=== PATIENT | female | born 1940 | race Caucasian/White ===

== ENCOUNTER 2018-04-27 12:44 | Inpatient (IN) | payer MEDICARE, BC ==
[~2018-04-27] VITALS: Ht 147.3 cm; Wt 60.3 kg
[~2018-04-27 12:44] MED LIST: FUROSEMIDE 20 MG TABLET PO PRN; POTASSIUM CHLORIDE 10 MEQ ER TABLET PO PRN
[2018-04-27] MEDS ORDERED: MELATONIN 5 MG TABLET PO PRN (15:00)
[2018-04-27 15:24] VITALS: BP 142/74
[2018-04-27] MEDS: ACETAMINOPHEN 325 MG TABLET PO PRN (15:57)
[2018-04-27] MEDS ORDERED: SIMETHICONE 80 MG CHEWABLE TABLET CHEW PRN (16:00)
[2018-04-27] MEDS ORDERED: FUROSEMIDE 20 MG TABLET PO ONE (16:00)
[2018-04-27 18:38] LABS: GLUCOMETER DEV NAME(LOC) 2WR.1; GLUCOSE,POINT OF CARE 143 MG/DL (70-110)
[2018-04-27] MEDS: POLYETHYLENE GLYCOL 3350 17 GM PACKET PO SCH (19:00)
[2018-04-27] MEDS: OXYGEN THERAPY IH SCH (20:00)
[2018-04-27] MEDS: SENNA 187 MG TABLET PO SCH ×2 (21:00→21:56)
[2018-04-27] MEDS: CALCIUM CIT/VITAMIN D3 200 MG-250 UNITS TABLET PO SCH ×2 (21:00→21:56)
[2018-04-27] MEDS: DOCUSATE SODIUM 100 MG CAPSULE PO SCH ×2 (21:00→21:57)
[2018-04-27 21:30] VITALS: BP 152/82
[2018-04-27] MEDS: PREGABALIN 50 MG CAPSULE PO SCH (21:56)
[2018-04-27] MEDS: PredniSONE 5 MG TABLET PO SCH (21:57)
[2018-04-27] MEDS: ATORVASTATIN CALCIUM 20 MG TABLET PO SCH (21:57)
[2018-04-27] MEDS: CELECOXIB 200 MG CAPSULE PO SCH (21:57)
[2018-04-27] MEDS: AmLODIPine BESYLATE 5 MG TABLET PO SCH (21:57)
[2018-04-27 22:04] LABS: GLUCOMETER DEV NAME(LOC) 2WR.2; GLUCOSE,POINT OF CARE 128 MG/DL (70-110)
[2018-04-28 02:00] VITALS: BP 144/81
[2018-04-28] MEDS: LEVOTHYROXINE SODIUM 75 MCG TABLET PO SCH (05:35)
[2018-04-28 06:48] LABS: HEMATOCRIT 31.5 % (36-46); HEMOGLOBIN 10.4 g/dL (12.0-16.0); MEAN CORPUSCULAR HEMOGLOBIN 29.8 pg (26.0-34.0); MEAN CORPUSCULAR HGB CONC 32.9 G/dL (31.0-37.0); MEAN CORPUSCULAR VOLUME 91 fL (80-100); PLATELET COUNT (AUTO) 262 K/uL (150-450); RED BLOOD CELL COUNT(AUTO) 3.49 MIL/uL (4.00-5.20); RED CELL DISTRIBUTION WIDTH 16.7 % (11.5-14.5)
[2018-04-28 06:54] LABS: HEMOGLOBIN A1C 6.4 % (4.5-6.2)
[2018-04-28 07:00] LABS: ALANINE AMINOTRANSFERASE 17 U/L (12-78); ALBUMIN 2.1 g/dL (3.4-5.0); ALKALINE PHOSPHATASE 77 U/L (46-116); ANION GAP 9 mmol/L (8-16); ASPARTATE AMINOTRANSFERASE 20 U/L (15-37); BILIRUBIN,TOTAL 0.5 mg/dL (0.1-1.0); CALCIUM, TOTAL 8.2 mg/dL (8.8-10.5); CARBON DIOXIDE 26 mmol/L (22-29); CHLORIDE 102 mmol/L (98-107); CREATININE 0.71 mg/dL (0.60-1.30); GLUCOSE,RANDOM 116 mg/dL (70-110); POTASSIUM 4.4 mmol/L (3.5-5.1); SODIUM SERUM 137 mmol/L (136-145); TOTAL PROTEIN, SERUM 5.6 g/dL (6.4-8.2); UREA NITROGEN, BLOOD 31 mg/dL (7-18)
[2018-04-28 07:02] LABS: GLOMERULAR FILTR. RATE CALC > 60 mL/min (>60)
[2018-04-28 07:28] VITALS: BP 153/95
[2018-04-28] MEDS: OXYGEN THERAPY IH SCH ×3 (08:00→20:59)
[2018-04-28] MEDS: POLYETHYLENE GLYCOL 3350 17 GM PACKET PO SCH (08:46)
[2018-04-28] MEDS: PREGABALIN 25 MG CAPSULE PO SCH (08:46)
[2018-04-28] MEDS: OMEPRAZOLE 20 MG CAPSULE PO SCH (08:46)
[2018-04-28] MEDS: PredniSONE 10 MG TABLET PO SCH (08:47)
[2018-04-28] MEDS: DOCUSATE SODIUM 100 MG CAPSULE PO SCH ×2 (08:47→21:09)
[2018-04-28] MEDS: ALLOPURINOL 300 MG TABLET PO SCH (08:47)
[2018-04-28] MEDS: CELECOXIB 200 MG CAPSULE PO SCH ×2 (08:47→21:09)
[2018-04-28] MEDS: CALCIUM CIT/VITAMIN D3 200 MG-250 UNITS TABLET PO SCH ×2 (08:47→21:10)
[2018-04-28] MEDS ORDERED: LISINOPRIL 5 MG TABLET PO SCH ×3 (09:00→21:00)
[2018-04-28] MEDS ORDERED: POTASSIUM CHLORIDE 10 MEQ ER TABLET PO SCH (09:00)
[2018-04-28 09:32] LABS: BAND NEUTROPHILS % (MANUAL) 2 % (0-5); LYMPHOCYTES % (MANUAL) 15 % (22-44); METAMYELOCYTES % 4 % (0-0); MONOCYTES % (MANUAL) 13 % (2-9); MYELOCYTES % 3 % (0-0); SEGMENTED NEUTROPHILS % 63 % (40-70)
[2018-04-28] MEDS ORDERED: POLYETHYLENE GLYCOL 3350 17 GM PACKET PO PRN (09:45)
[2018-04-28 12:58] LABS: GLUCOMETER DEV NAME(LOC) 2WR.2; GLUCOSE,POINT OF CARE 90 MG/DL (70-110)
[2018-04-28] MEDS: ACETAMINOPHEN 325 MG TABLET PO PRN (13:04)
[2018-04-28 13:37] VITALS: BP 152/99
[2018-04-28 15:45] VITALS: BP 156/104
[2018-04-28 17:29] LABS: GLUCOMETER DEV NAME(LOC) 2WR.2; GLUCOSE,POINT OF CARE 162 MG/DL (70-110)
[2018-04-28 17:30] VITALS: BP 143/81
[2018-04-28] MEDS: METOPROLOL SUCCINATE 50 MG ER TABLET PO SCH (18:04)
[2018-04-28 18:54] LABS: GLUCOMETER DEV NAME(LOC) 2WR.1; GLUCOSE,POINT OF CARE 119 MG/DL (70-110)
[2018-04-28] MEDS: SENNA 187 MG TABLET PO SCH (21:00)
[2018-04-28 21:04] VITALS: BP 146/85
[2018-04-28] MEDS: AmLODIPine BESYLATE 5 MG TABLET PO SCH (21:09)
[2018-04-28] MEDS: ATORVASTATIN CALCIUM 20 MG TABLET PO SCH (21:10)
[2018-04-28] MEDS: PREGABALIN 50 MG CAPSULE PO SCH (21:12)
[2018-04-28] MEDS: PredniSONE 5 MG TABLET PO SCH (21:12)
[2018-04-28 22:13] LABS: GLUCOMETER DEV NAME(LOC) 2WR.2; GLUCOSE,POINT OF CARE 105 MG/DL (70-110)
[2018-04-29] VITALS: BP 151/84
[2018-04-29] MEDS: LEVOTHYROXINE SODIUM 75 MCG TABLET PO SCH (07:04)
[2018-04-29 07:19] LABS: GLUCOMETER DEV NAME(LOC) 2WR.2; GLUCOSE,POINT OF CARE 98 MG/DL (70-110)
[2018-04-29 08:00] VITALS: BP 154/76
[2018-04-29] MEDS: OXYGEN THERAPY IH SCH ×2 (08:00→20:00)
[2018-04-29] MEDS ORDERED: DEXTROSE 50%-WATER 25 GM/50 ML SYRINGE IVP PRN (09:45)
[2018-04-29] MEDS ORDERED: INSULIN LISPRO 100 UNITS/ML SQ PRN (09:45)
[2018-04-29] MEDS: PREGABALIN 25 MG CAPSULE PO SCH (09:53)
[2018-04-29] MEDS: ALLOPURINOL 300 MG TABLET PO SCH (09:55)
[2018-04-29] MEDS: FUROSEMIDE 20 MG TABLET PO SCH (09:55)
[2018-04-29] MEDS: METOPROLOL SUCCINATE 50 MG ER TABLET PO SCH (09:55)
[2018-04-29] MEDS: CALCIUM CIT/VITAMIN D3 200 MG-250 UNITS TABLET PO SCH ×2 (09:55→20:09)
[2018-04-29] MEDS: CELECOXIB 200 MG CAPSULE PO SCH ×2 (09:55→20:11)
[2018-04-29] MEDS: POTASSIUM CHLORIDE 10 MEQ ER TABLET PO SCH (09:56)
[2018-04-29] MEDS: DOCUSATE SODIUM 100 MG CAPSULE PO SCH ×2 (09:56→20:13)
[2018-04-29] MEDS: OMEPRAZOLE 20 MG CAPSULE PO SCH (09:58)
[2018-04-29] MEDS: PredniSONE 10 MG TABLET PO SCH (10:00)
[2018-04-29 13:19] LABS: GLUCOMETER DEV NAME(LOC) 2WR.1; GLUCOSE,POINT OF CARE 106 MG/DL (70-110)
[2018-04-29] MEDS: COLD CREAM, SKIN EMOLLIENT 340 GM JAR TP SCH ×2 (14:33→20:15)
[2018-04-29 17:53] LABS: GLUCOMETER DEV NAME(LOC) 2WR.1; GLUCOSE,POINT OF CARE 120 MG/DL (70-110)
[2018-04-29 18:03] VITALS: BP 133/87
[2018-04-29] MEDS: LISINOPRIL 20 MG TABLET PO SCH (20:09)
[2018-04-29] MEDS: PredniSONE 5 MG TABLET PO SCH (20:09)
[2018-04-29] MEDS: ACETAMINOPHEN 325 MG TABLET PO PRN (20:10)
[2018-04-29] MEDS: AmLODIPine BESYLATE 5 MG TABLET PO SCH (20:10)
[2018-04-29] MEDS: ATORVASTATIN CALCIUM 20 MG TABLET PO SCH (20:11)
[2018-04-29] MEDS: PREGABALIN 50 MG CAPSULE PO SCH (20:11)
[2018-04-29] MEDS: SENNA 187 MG TABLET PO SCH (20:13)
[2018-04-29] MEDS ORDERED: LISINOPRIL 5 MG TABLET PO SCH (21:00)
[2018-04-30] VITALS: BP 143/72
[2018-04-30 06:39] LABS: GLUCOMETER DEV NAME(LOC) 2WR.2; GLUCOSE,POINT OF CARE 104 MG/DL (70-110)
[2018-04-30] MEDS: LEVOTHYROXINE SODIUM 75 MCG TABLET PO SCH (07:03)
[2018-04-30] MEDS: OXYGEN THERAPY IH SCH ×2 (08:00→20:00)
[2018-04-30 08:13] VITALS: BP 150/78
[2018-04-30] MEDS: CELECOXIB 200 MG CAPSULE PO SCH ×2 (08:44→20:01)
[2018-04-30] MEDS: OMEPRAZOLE 20 MG CAPSULE PO SCH (08:44)
[2018-04-30] MEDS: METOPROLOL SUCCINATE 50 MG ER TABLET PO SCH (08:44)
[2018-04-30] MEDS: DOCUSATE SODIUM 100 MG CAPSULE PO SCH ×2 (08:44→20:00)
[2018-04-30] MEDS: PredniSONE 10 MG TABLET PO SCH (08:45)
[2018-04-30] MEDS: PREGABALIN 50 MG CAPSULE PO SCH ×2 (08:45→22:01)
[2018-04-30] MEDS: ALLOPURINOL 300 MG TABLET PO SCH (08:45)
[2018-04-30] MEDS: COLD CREAM, SKIN EMOLLIENT 340 GM JAR TP SCH ×2 (08:46→20:01)
[2018-04-30] MEDS: CALCIUM CIT/VITAMIN D3 200 MG-250 UNITS TABLET PO SCH ×2 (08:48→20:00)
[2018-04-30 09:10] LABS: ABG A-A DIFF O2 34.3 mmHg (10-20.0); ABG BASE EXCESS 4.2 mmol/L (-2.0-3.0); ABG CARBOXYHEMOGLOBIN 0.7 % (0.0-1.5); ABG HCO3 28.3 mmol/L (22.0-26.0); ABG METHEMOGLOBIN 0.3 % (0.0-1.5); ABG OXYGEN CONTENT 18.2 mL/dL (15.0-23.0); ABG OXYGEN SATURATION 95.2 % (95.0-98.0); ABG OXYHEMOGLOBIN 94.2 % (94.0-100.0); ABG PCO2 35 mmHg (35-45); ABG PH 7.509 (7.35-7.450); ABG TOTAL HEMOGLOBIN 13.7 G/dL (12.0-18.0); PO2, ARTERIAL BG 73.5 mmHg (75.0-83.0); SOURCE, BLOOD GAS ARTERIAL; TEMPERATURE, FAHRENHEIT, BG 98.6 FAHREN (96.0-98.6)
[2018-04-30 09:11] LABS: O2 DEVICE,BLOOD GAS ROOM AIR (ROOM AIR); SITE, BLOOD GAS RT RADIAL
[2018-04-30] MEDS: TraMADol HCL 50 MG TABLET PO PRN (10:34)
[2018-04-30 12:30] VITALS: BP 137/94
[2018-04-30 16:06] VITALS: BP 145/66
[2018-04-30 20:00] VITALS: BP 154/84
[2018-04-30] MEDS: PredniSONE 5 MG TABLET PO SCH (20:00)
[2018-04-30] MEDS: AmLODIPine BESYLATE 5 MG TABLET PO SCH (20:00)
[2018-04-30] MEDS: ATORVASTATIN CALCIUM 20 MG TABLET PO SCH (20:00)
[2018-04-30] MEDS: LISINOPRIL 20 MG TABLET PO SCH (20:00)
[2018-04-30] MEDS: SENNA 187 MG TABLET PO SCH (20:00)
[2018-05-01 03:00] VITALS: BP 144/74
[2018-05-01] MEDS: LEVOTHYROXINE SODIUM 75 MCG TABLET PO SCH (05:50)
[2018-05-01 06:39] LABS: GLUCOMETER DEV NAME(LOC) 2WR.2; GLUCOSE,POINT OF CARE 105 MG/DL (70-110)
[2018-05-01 08:00] VITALS: BP 148/84
[2018-05-01] MEDS: OXYGEN THERAPY IH SCH ×2 (08:00→20:00)
[2018-05-01] MEDS: PredniSONE 5 MG TABLET PO SCH ×2 (08:38→20:04)
[2018-05-01] MEDS: DOCUSATE SODIUM 100 MG CAPSULE PO SCH ×3 (08:39→20:10)
[2018-05-01] MEDS: METOPROLOL SUCCINATE 50 MG ER TABLET PO SCH (08:39)
[2018-05-01] MEDS: ALLOPURINOL 300 MG TABLET PO SCH (08:39)
[2018-05-01] MEDS: CALCIUM CIT/VITAMIN D3 200 MG-250 UNITS TABLET PO SCH ×2 (08:39→20:03)
[2018-05-01] MEDS: OMEPRAZOLE 20 MG CAPSULE PO SCH (08:39)
[2018-05-01] MEDS: PREGABALIN 50 MG CAPSULE PO SCH ×2 (08:39→20:03)
[2018-05-01] MEDS: CELECOXIB 200 MG CAPSULE PO SCH ×2 (08:39→20:03)
[2018-05-01] MEDS: FUROSEMIDE 20 MG TABLET PO SCH (08:40)
[2018-05-01] MEDS: COLD CREAM, SKIN EMOLLIENT 340 GM JAR TP SCH ×2 (08:40→20:05)
[2018-05-01] MEDS: POTASSIUM CHLORIDE 10 MEQ ER TABLET PO SCH (08:40)
[2018-05-01] MEDS ORDERED: PredniSONE 10 MG TABLET PO SCH (09:00)
[2018-05-01] MEDS: TraMADol HCL 50 MG TABLET PO PRN (12:39)
[2018-05-01 16:00] VITALS: BP 133/74
[2018-05-01 20:00] VITALS: BP 128/78
[2018-05-01] MEDS: SENNA 187 MG TABLET PO SCH (20:03)
[2018-05-01] MEDS: LISINOPRIL 20 MG TABLET PO SCH (20:04)
[2018-05-01] MEDS: AmLODIPine BESYLATE 5 MG TABLET PO SCH (20:04)
[2018-05-01] MEDS: ATORVASTATIN CALCIUM 20 MG TABLET PO SCH (20:04)
[2018-05-02 03:36] VITALS: BP 131/69
[2018-05-02] MEDS: LEVOTHYROXINE SODIUM 75 MCG TABLET PO SCH (06:10)
[2018-05-02 06:29] LABS: GLUCOMETER DEV NAME(LOC) 2WR.1; GLUCOSE,POINT OF CARE 119 MG/DL (70-110)
[2018-05-02] MEDS: OXYGEN THERAPY IH SCH ×2 (08:00→20:00)
[2018-05-02 09:00] VITALS: BP 137/71
[2018-05-02] MEDS: DOCUSATE SODIUM 100 MG CAPSULE PO SCH ×3 (09:00→20:28)
[2018-05-02] MEDS: CELECOXIB 200 MG CAPSULE PO SCH ×2 (09:03→20:29)
[2018-05-02] MEDS: ALLOPURINOL 300 MG TABLET PO SCH (09:03)
[2018-05-02] MEDS: METOPROLOL SUCCINATE 50 MG ER TABLET PO SCH (09:04)
[2018-05-02] MEDS: CALCIUM CIT/VITAMIN D3 200 MG-250 UNITS TABLET PO SCH ×2 (09:04→20:28)
[2018-05-02] MEDS: PredniSONE 5 MG TABLET PO SCH ×2 (09:05→20:29)
[2018-05-02] MEDS: OMEPRAZOLE 20 MG CAPSULE PO SCH (09:05)
[2018-05-02] MEDS: COLD CREAM, SKIN EMOLLIENT 340 GM JAR TP SCH ×2 (09:07→20:29)
[2018-05-02] MEDS: PREGABALIN 50 MG CAPSULE PO SCH ×2 (09:07→20:28)
[2018-05-02 15:03] VITALS: BP 118/52
[2018-05-02] MEDS: TraMADol HCL 50 MG TABLET PO PRN (15:05)
[2018-05-02 20:00] VITALS: BP 132/82
[2018-05-02] MEDS: SENNA 187 MG TABLET PO SCH (20:28)
[2018-05-02] MEDS: ATORVASTATIN CALCIUM 20 MG TABLET PO SCH (20:29)
[2018-05-02] MEDS: AmLODIPine BESYLATE 5 MG TABLET PO SCH (20:29)
[2018-05-02] MEDS: LISINOPRIL 20 MG TABLET PO SCH (20:29)
[2018-05-03 03:57] VITALS: BP 136/74
[2018-05-03] MEDS: LEVOTHYROXINE SODIUM 75 MCG TABLET PO SCH (06:16)
[2018-05-03 07:46] VITALS: BP 148/78
[2018-05-03] MEDS: OXYGEN THERAPY IH SCH ×2 (08:00→20:00)
[2018-05-03] MEDS: POTASSIUM CHLORIDE 10 MEQ ER TABLET PO SCH (08:17)
[2018-05-03] MEDS: PREGABALIN 50 MG CAPSULE PO SCH ×2 (08:17→20:33)
[2018-05-03] MEDS: CELECOXIB 200 MG CAPSULE PO SCH ×2 (08:17→20:33)
[2018-05-03] MEDS: OMEPRAZOLE 20 MG CAPSULE PO SCH (08:18)
[2018-05-03] MEDS: PredniSONE 5 MG TABLET PO SCH ×2 (08:18→20:33)
[2018-05-03] MEDS: CALCIUM CIT/VITAMIN D3 200 MG-250 UNITS TABLET PO SCH ×2 (08:20→20:33)
[2018-05-03] MEDS: ALLOPURINOL 300 MG TABLET PO SCH (08:20)
[2018-05-03] MEDS: METOPROLOL SUCCINATE 50 MG ER TABLET PO SCH (08:20)
[2018-05-03] MEDS: COLD CREAM, SKIN EMOLLIENT 340 GM JAR TP SCH ×2 (08:21→20:34)
[2018-05-03] MEDS: DOCUSATE SODIUM 100 MG CAPSULE PO SCH ×2 (08:21→20:33)
[2018-05-03] MEDS: FUROSEMIDE 20 MG TABLET PO SCH (08:21)
[2018-05-03] MEDS: ACETAMINOPHEN 325 MG TABLET PO PRN (13:20)
[2018-05-03] MEDS ORDERED: *NON-FORMULARY MED [ENTER DRUG, DOSE, FREQ IN COMMENTS] CLINICAL ONE (14:45)
[2018-05-03 16:09] VITALS: BP 115/62
[2018-05-03 20:25] VITALS: BP 118/57
[2018-05-03] MEDS: LISINOPRIL 20 MG TABLET PO SCH (20:33)
[2018-05-03] MEDS: ATORVASTATIN CALCIUM 20 MG TABLET PO SCH (20:33)
[2018-05-03] MEDS: AmLODIPine BESYLATE 5 MG TABLET PO SCH (20:33)
[2018-05-03] MEDS: SENNA 187 MG TABLET PO SCH (20:34)
[2018-05-04 01:56] VITALS: BP 136/69
[2018-05-04] MEDS: LEVOTHYROXINE SODIUM 75 MCG TABLET PO SCH (05:57)
[2018-05-04 07:21] VITALS: BP 140/72
[2018-05-04] MEDS: DOCUSATE SODIUM 100 MG CAPSULE PO SCH ×2 (08:38→20:43)
[2018-05-04] MEDS: OXYGEN THERAPY IH SCH ×2 (08:38→20:00)
[2018-05-04] MEDS: ALLOPURINOL 300 MG TABLET PO SCH (08:38)
[2018-05-04] MEDS: CALCIUM CIT/VITAMIN D3 200 MG-250 UNITS TABLET PO SCH ×2 (08:38→20:44)
[2018-05-04] MEDS: METOPROLOL SUCCINATE 50 MG ER TABLET PO SCH (08:39)
[2018-05-04] MEDS: PREGABALIN 50 MG CAPSULE PO SCH ×2 (08:39→20:44)
[2018-05-04] MEDS: CELECOXIB 200 MG CAPSULE PO SCH ×2 (08:39→20:44)
[2018-05-04] MEDS: PredniSONE 5 MG TABLET PO SCH ×2 (08:39→20:44)
[2018-05-04] MEDS: COLD CREAM, SKIN EMOLLIENT 340 GM JAR TP SCH ×2 (08:40→20:44)
[2018-05-04] MEDS: OMEPRAZOLE 20 MG CAPSULE PO SCH (08:42)
[2018-05-04 09:07] VITALS: BP 119/68
[2018-05-04 15:02] VITALS: BP 143/114
[2018-05-04] MEDS: ACETAMINOPHEN 325 MG TABLET PO PRN (15:06)
[2018-05-04 20:39] VITALS: BP 154/85
[2018-05-04] MEDS: LISINOPRIL 20 MG TABLET PO SCH (20:43)
[2018-05-04] MEDS: AmLODIPine BESYLATE 5 MG TABLET PO SCH (20:43)
[2018-05-04] MEDS: SENNA 187 MG TABLET PO SCH (20:44)
[2018-05-04] MEDS: ATORVASTATIN CALCIUM 20 MG TABLET PO SCH (20:44)
[2018-05-05 02:30] VITALS: BP 148/77
[2018-05-05] MEDS: LEVOTHYROXINE SODIUM 75 MCG TABLET PO SCH (06:05)
[2018-05-05 07:20] VITALS: BP 148/80
[2018-05-05] MEDS: OXYGEN THERAPY IH SCH ×2 (08:00→20:00)
[2018-05-05] MEDS: POTASSIUM CHLORIDE 10 MEQ ER TABLET PO SCH (09:16)
[2018-05-05] MEDS: CELECOXIB 200 MG CAPSULE PO SCH ×2 (09:16→20:18)
[2018-05-05] MEDS: PredniSONE 5 MG TABLET PO SCH ×2 (09:18→20:19)
[2018-05-05] MEDS: CALCIUM CIT/VITAMIN D3 200 MG-250 UNITS TABLET PO SCH ×2 (09:18→20:18)
[2018-05-05] MEDS: PREGABALIN 50 MG CAPSULE PO SCH ×2 (09:18→20:19)
[2018-05-05] MEDS: METOPROLOL SUCCINATE 50 MG ER TABLET PO SCH (09:18)
[2018-05-05] MEDS: DOCUSATE SODIUM 100 MG CAPSULE PO SCH ×2 (09:19→20:18)
[2018-05-05] MEDS: OMEPRAZOLE 20 MG CAPSULE PO SCH (09:19)
[2018-05-05] MEDS: ALLOPURINOL 300 MG TABLET PO SCH (09:19)
[2018-05-05] MEDS: COLD CREAM, SKIN EMOLLIENT 340 GM JAR TP SCH ×2 (09:20→20:22)
[2018-05-05] MEDS ORDERED: [UNRECOGNIZED DRUG - OTHER] SQ SCH (12:34)
[2018-05-05] MEDS: FUROSEMIDE 20 MG TABLET PO SCH (13:00)
[2018-05-05] MEDS: ACETAMINOPHEN 325 MG TABLET PO PRN (13:01)
[2018-05-05] MEDS: HUMIRA 40 MG/0.4 ML SQ SCH (14:17)
[2018-05-05 15:39] VITALS: BP 135/77
[2018-05-05 20:15] VITALS: BP 124/74
[2018-05-05] MEDS: ATORVASTATIN CALCIUM 20 MG TABLET PO SCH (20:19)
[2018-05-05] MEDS: LISINOPRIL 20 MG TABLET PO SCH (20:19)
[2018-05-05] MEDS: SENNA 187 MG TABLET PO SCH (20:19)
[2018-05-05] MEDS: AmLODIPine BESYLATE 5 MG TABLET PO SCH (20:19)
[2018-05-06 03:00] VITALS: BP 146/75
[2018-05-06] MEDS: LEVOTHYROXINE SODIUM 75 MCG TABLET PO SCH (06:26)
[2018-05-06 07:10] VITALS: BP 126/76
[2018-05-06] MEDS: OXYGEN THERAPY IH SCH ×3 (08:00→20:53)
[2018-05-06] MEDS: DOCUSATE SODIUM 100 MG CAPSULE PO SCH ×3 (08:39→20:56)
[2018-05-06] MEDS: CALCIUM CIT/VITAMIN D3 200 MG-250 UNITS TABLET PO SCH ×2 (08:40→20:56)
[2018-05-06] MEDS: METOPROLOL SUCCINATE 50 MG ER TABLET PO SCH (08:40)
[2018-05-06] MEDS: ALLOPURINOL 300 MG TABLET PO SCH (08:40)
[2018-05-06] MEDS: CELECOXIB 200 MG CAPSULE PO SCH ×2 (08:40→20:55)
[2018-05-06] MEDS: OMEPRAZOLE 20 MG CAPSULE PO SCH (08:40)
[2018-05-06] MEDS: PREGABALIN 50 MG CAPSULE PO SCH ×2 (08:40→20:56)
[2018-05-06] MEDS: PredniSONE 5 MG TABLET PO SCH ×2 (08:40→20:56)
[2018-05-06] MEDS: COLD CREAM, SKIN EMOLLIENT 340 GM JAR TP SCH ×2 (08:40→20:57)
[2018-05-06] MEDS: ACETAMINOPHEN 325 MG TABLET PO PRN ×2 (10:34→14:12)
[2018-05-06 15:05] VITALS: BP 124/71
[2018-05-06 20:50] VITALS: BP 135/57
[2018-05-06] MEDS: SENNA 187 MG TABLET PO SCH ×2 (20:55→21:00)
[2018-05-06] MEDS: AmLODIPine BESYLATE 5 MG TABLET PO SCH (20:56)
[2018-05-06] MEDS: ATORVASTATIN CALCIUM 20 MG TABLET PO SCH (20:56)
[2018-05-06] MEDS: LISINOPRIL 20 MG TABLET PO SCH (20:56)
[2018-05-07 03:25] VITALS: BP 142/68
[2018-05-07] MEDS: ACETAMINOPHEN 325 MG TABLET PO PRN ×3 (04:13→17:04)
[2018-05-07] MEDS: LEVOTHYROXINE SODIUM 75 MCG TABLET PO SCH (05:58)
[2018-05-07] MEDS: OXYGEN THERAPY IH SCH ×2 (08:00→20:00)
[2018-05-07] MEDS: CALCIUM CIT/VITAMIN D3 200 MG-250 UNITS TABLET PO SCH ×2 (08:07→20:30)
[2018-05-07] MEDS: DOCUSATE SODIUM 100 MG CAPSULE PO SCH ×2 (08:08→20:30)
[2018-05-07] MEDS: POTASSIUM CHLORIDE 10 MEQ ER TABLET PO SCH (08:09)
[2018-05-07] MEDS: METOPROLOL SUCCINATE 50 MG ER TABLET PO SCH (08:10)
[2018-05-07] MEDS: FUROSEMIDE 20 MG TABLET PO SCH (08:10)
[2018-05-07] MEDS: PREGABALIN 50 MG CAPSULE PO SCH ×2 (08:11→20:31)
[2018-05-07] MEDS: ALLOPURINOL 300 MG TABLET PO SCH (08:11)
[2018-05-07] MEDS: CELECOXIB 200 MG CAPSULE PO SCH ×2 (08:12→20:30)
[2018-05-07] MEDS: OMEPRAZOLE 20 MG CAPSULE PO SCH (08:13)
[2018-05-07] MEDS: PredniSONE 5 MG TABLET PO SCH ×2 (08:14→20:31)
[2018-05-07 08:15] VITALS: BP 134/67
[2018-05-07] MEDS: COLD CREAM, SKIN EMOLLIENT 340 GM JAR TP SCH ×2 (08:18→20:30)
[2018-05-07 15:25] VITALS: BP 110/52
[2018-05-07 20:26] VITALS: BP 118/56
[2018-05-07] MEDS: LISINOPRIL 20 MG TABLET PO SCH (20:30)
[2018-05-07] MEDS: ATORVASTATIN CALCIUM 20 MG TABLET PO SCH (20:30)
[2018-05-07] MEDS: AmLODIPine BESYLATE 5 MG TABLET PO SCH (20:31)
[2018-05-07] MEDS: SENNA 187 MG TABLET PO SCH (20:31)
[2018-05-08 01:41] VITALS: BP 139/66
[2018-05-08] MEDS: ACETAMINOPHEN 325 MG TABLET PO PRN ×3 (04:06→17:40)
[2018-05-08] MEDS: LEVOTHYROXINE SODIUM 75 MCG TABLET PO SCH (06:26)
[2018-05-08] MEDS: OXYGEN THERAPY IH SCH ×3 (08:00→21:27)
[2018-05-08 08:55] VITALS: BP 135/64
[2018-05-08] MEDS: PREGABALIN 50 MG CAPSULE PO SCH ×2 (09:20→21:39)
[2018-05-08] MEDS: OMEPRAZOLE 20 MG CAPSULE PO SCH (09:20)
[2018-05-08] MEDS: ALLOPURINOL 300 MG TABLET PO SCH (09:20)
[2018-05-08] MEDS: DOCUSATE SODIUM 100 MG CAPSULE PO SCH ×2 (09:20→21:39)
[2018-05-08] MEDS: METOPROLOL SUCCINATE 50 MG ER TABLET PO SCH (09:20)
[2018-05-08] MEDS: CALCIUM CIT/VITAMIN D3 200 MG-250 UNITS TABLET PO SCH ×2 (09:20→21:39)
[2018-05-08] MEDS: CELECOXIB 200 MG CAPSULE PO SCH ×2 (09:21→21:39)
[2018-05-08] MEDS: PredniSONE 5 MG TABLET PO SCH ×2 (09:21→21:38)
[2018-05-08] MEDS: COLD CREAM, SKIN EMOLLIENT 340 GM JAR TP SCH ×2 (09:29→21:40)
[2018-05-08 15:05] VITALS: BP 136/69
[2018-05-08] MEDS: SENNA 187 MG TABLET PO SCH ×2 (21:00→21:39)
[2018-05-08 21:35] VITALS: BP 128/57
[2018-05-08] MEDS: LISINOPRIL 20 MG TABLET PO SCH (21:39)
[2018-05-08] MEDS: ATORVASTATIN CALCIUM 20 MG TABLET PO SCH (21:39)
[2018-05-08] MEDS: AmLODIPine BESYLATE 5 MG TABLET PO SCH (21:39)
[2018-05-09 00:30] VITALS: BP 126/56
[2018-05-09] MEDS: LEVOTHYROXINE SODIUM 75 MCG TABLET PO SCH (06:29)
[2018-05-09 07:18] VITALS: BP 146/74
[2018-05-09] MEDS: OXYGEN THERAPY IH SCH ×2 (08:00→20:00)
[2018-05-09] MEDS: CALCIUM CIT/VITAMIN D3 200 MG-250 UNITS TABLET PO SCH ×2 (08:51→21:25)
[2018-05-09] MEDS: FUROSEMIDE 20 MG TABLET PO SCH (08:51)
[2018-05-09] MEDS: CELECOXIB 200 MG CAPSULE PO SCH ×2 (08:51→21:25)
[2018-05-09] MEDS: METOPROLOL SUCCINATE 50 MG ER TABLET PO SCH (08:51)
[2018-05-09] MEDS: OMEPRAZOLE 20 MG CAPSULE PO SCH (08:52)
[2018-05-09] MEDS: DOCUSATE SODIUM 100 MG CAPSULE PO SCH ×2 (08:52→21:25)
[2018-05-09] MEDS: PREGABALIN 50 MG CAPSULE PO SCH ×2 (08:52→21:25)
[2018-05-09] MEDS: POTASSIUM CHLORIDE 10 MEQ ER TABLET PO SCH (08:52)
[2018-05-09] MEDS: ALLOPURINOL 300 MG TABLET PO SCH (08:52)
[2018-05-09] MEDS: PredniSONE 5 MG TABLET PO SCH ×2 (08:52→21:26)
[2018-05-09] MEDS: COLD CREAM, SKIN EMOLLIENT 340 GM JAR TP SCH ×2 (08:59→21:26)
[2018-05-09 09:22] VITALS: BP 137/74
[2018-05-09] MEDS: ACETAMINOPHEN 325 MG TABLET PO PRN ×2 (11:34→15:30)
[2018-05-09 15:30] VITALS: BP 122/70
[2018-05-09] MEDS: SENNA 187 MG TABLET PO SCH (21:00)
[2018-05-09 21:20] VITALS: BP 146/86
[2018-05-09] MEDS: LISINOPRIL 20 MG TABLET PO SCH (21:25)
[2018-05-09] MEDS: AmLODIPine BESYLATE 5 MG TABLET PO SCH (21:25)
[2018-05-09] MEDS: ATORVASTATIN CALCIUM 20 MG TABLET PO SCH (21:26)
[2018-05-10] VITALS: BP 128/67
[2018-05-10] MEDS: LEVOTHYROXINE SODIUM 75 MCG TABLET PO SCH (06:21)
[2018-05-10] MEDS: OXYGEN THERAPY IH SCH ×2 (08:00→20:00)
[2018-05-10 08:10] VITALS: BP 147/83
[2018-05-10] MEDS: METOPROLOL SUCCINATE 50 MG ER TABLET PO SCH (09:13)
[2018-05-10] MEDS: CELECOXIB 200 MG CAPSULE PO SCH ×2 (09:13→20:33)
[2018-05-10] MEDS: PredniSONE 5 MG TABLET PO SCH ×2 (09:13→20:34)
[2018-05-10] MEDS: OMEPRAZOLE 20 MG CAPSULE PO SCH (09:13)
[2018-05-10] MEDS: ALLOPURINOL 300 MG TABLET PO SCH (09:13)
[2018-05-10] MEDS: CALCIUM CIT/VITAMIN D3 200 MG-250 UNITS TABLET PO SCH ×2 (09:14→20:33)
[2018-05-10] MEDS: DOCUSATE SODIUM 100 MG CAPSULE PO SCH ×2 (09:14→20:33)
[2018-05-10] MEDS: PREGABALIN 50 MG CAPSULE PO SCH ×2 (09:22→20:34)
[2018-05-10] MEDS: COLD CREAM, SKIN EMOLLIENT 340 GM JAR TP SCH ×2 (09:28→20:35)
[2018-05-10] MEDS: ACETAMINOPHEN 325 MG TABLET PO PRN ×2 (10:51→15:04)
[2018-05-10 15:02] VITALS: BP 142/72
[2018-05-10 20:28] VITALS: BP 134/76
[2018-05-10] MEDS: AmLODIPine BESYLATE 5 MG TABLET PO SCH (20:34)
[2018-05-10] MEDS: ATORVASTATIN CALCIUM 20 MG TABLET PO SCH (20:34)
[2018-05-10] MEDS: SENNA 187 MG TABLET PO SCH (20:35)
[2018-05-10] MEDS: LISINOPRIL 20 MG TABLET PO SCH (20:35)
[2018-05-11 01:00] VITALS: BP 141/83
[2018-05-11] MEDS: LEVOTHYROXINE SODIUM 75 MCG TABLET PO SCH (05:26)
[2018-05-11 07:16] VITALS: BP 156/84
[2018-05-11] MEDS: OXYGEN THERAPY IH SCH ×2 (08:00→20:00)
[2018-05-11] MEDS: METOPROLOL SUCCINATE 50 MG ER TABLET PO SCH (09:08)
[2018-05-11] MEDS: CALCIUM CIT/VITAMIN D3 200 MG-250 UNITS TABLET PO SCH ×2 (09:08→20:28)
[2018-05-11] MEDS: PREGABALIN 50 MG CAPSULE PO SCH ×2 (09:08→20:29)
[2018-05-11] MEDS: DOCUSATE SODIUM 100 MG CAPSULE PO SCH ×2 (09:08→20:29)
[2018-05-11] MEDS: FUROSEMIDE 20 MG TABLET PO SCH (09:09)
[2018-05-11] MEDS: POTASSIUM CHLORIDE 10 MEQ ER TABLET PO SCH (09:09)
[2018-05-11] MEDS: OMEPRAZOLE 20 MG CAPSULE PO SCH (09:09)
[2018-05-11] MEDS: CELECOXIB 200 MG CAPSULE PO SCH ×2 (09:09→20:28)
[2018-05-11] MEDS: PredniSONE 5 MG TABLET PO SCH ×2 (09:09→20:28)
[2018-05-11] MEDS: COLD CREAM, SKIN EMOLLIENT 340 GM JAR TP SCH ×2 (09:10→20:30)
[2018-05-11] MEDS: ALLOPURINOL 300 MG TABLET PO SCH (09:10)
[2018-05-11] MEDS: ACETAMINOPHEN 325 MG TABLET PO PRN ×2 (09:53→14:40)
[2018-05-11 10:53] VITALS: BP 151/85
[2018-05-11 16:16] VITALS: BP 140/65
[2018-05-11 19:58] VITALS: BP 130/64
[2018-05-11] MEDS: AmLODIPine BESYLATE 5 MG TABLET PO SCH (20:29)
[2018-05-11] MEDS: SENNA 187 MG TABLET PO SCH (20:29)
[2018-05-11] MEDS: ATORVASTATIN CALCIUM 20 MG TABLET PO SCH (20:29)
[2018-05-11] MEDS: LISINOPRIL 20 MG TABLET PO SCH (20:29)
[2018-05-12 00:47] VITALS: BP 144/75
[2018-05-12] MEDS: LEVOTHYROXINE SODIUM 75 MCG TABLET PO SCH (06:30)
[2018-05-12 07:35] VITALS: BP 140/69
[2018-05-12] MEDS: OXYGEN THERAPY IH SCH ×2 (08:00→20:00)
[2018-05-12] MEDS: CELECOXIB 200 MG CAPSULE PO SCH ×2 (09:08→20:18)
[2018-05-12] MEDS: ALLOPURINOL 300 MG TABLET PO SCH (09:09)
[2018-05-12] MEDS: METOPROLOL SUCCINATE 50 MG ER TABLET PO SCH (09:09)
[2018-05-12] MEDS: PREGABALIN 50 MG CAPSULE PO SCH ×2 (09:09→20:18)
[2018-05-12] MEDS: OMEPRAZOLE 20 MG CAPSULE PO SCH (09:09)
[2018-05-12] MEDS: DOCUSATE SODIUM 100 MG CAPSULE PO SCH (09:09)
[2018-05-12] MEDS: CALCIUM CIT/VITAMIN D3 200 MG-250 UNITS TABLET PO SCH ×2 (09:10→20:18)
[2018-05-12] MEDS: COLD CREAM, SKIN EMOLLIENT 340 GM JAR TP SCH ×2 (09:10→20:24)
[2018-05-12] MEDS: PredniSONE 5 MG TABLET PO SCH ×2 (09:12→20:18)
[2018-05-12] MEDS: ACETAMINOPHEN 325 MG TABLET PO PRN ×2 (11:06→15:40)
[2018-05-12 15:40] VITALS: BP 130/58
[2018-05-12] MEDS ORDERED: METO50TA9 PO (19:33)
[2018-05-12] MEDS ORDERED: ALLO100T50 PO (19:33)
[2018-05-12] MEDS ORDERED: PRED10 PO (19:33)
[2018-05-12] MEDS ORDERED: DOCU100C33 PO (19:33)
[2018-05-12] MEDS ORDERED: LISI-662 PO (19:33)
[2018-05-12] MEDS ORDERED: LEVO75TA10 PO (19:33)
[2018-05-12] MEDS ORDERED: OMEP10SU2 PO (19:33)
[2018-05-12] MEDS ORDERED: PREG100C PO (19:33)
[2018-05-12] MEDS ORDERED: POTA-9 PO (19:33)
[2018-05-12] MEDS ORDERED: ATOR20TA86 PO (19:33)
[2018-05-12] MEDS ORDERED: AMLO-511 PO (19:33)
[2018-05-12] MEDS ORDERED: FURO-152 PO (19:33)
[2018-05-12] MEDS ORDERED: CELE400C PO (19:33)
[2018-05-12] MEDS: ATORVASTATIN CALCIUM 20 MG TABLET PO SCH (20:18)
[2018-05-12] MEDS: AmLODIPine BESYLATE 5 MG TABLET PO SCH (20:18)
[2018-05-12] MEDS: SENNA 187 MG TABLET PO SCH (20:19)
[2018-05-12] MEDS: LISINOPRIL 20 MG TABLET PO SCH (20:20)
[2018-05-12] MEDS: DOCUSATE SODIUM 100 MG CAPSULE PO PRN (20:20)
[2018-05-12 20:49] VITALS: BP 115/67
[2018-05-13 00:09] VITALS: BP 111/60
[2018-05-13] MEDS: LEVOTHYROXINE SODIUM 75 MCG TABLET PO SCH (06:04)
[2018-05-13] MEDS: OXYGEN THERAPY IH SCH ×2 (08:00→20:00)
[2018-05-13 08:42] VITALS: BP 123/59
[2018-05-13] MEDS: CALCIUM CIT/VITAMIN D3 200 MG-250 UNITS TABLET PO SCH ×2 (08:47→21:32)
[2018-05-13] MEDS: PredniSONE 5 MG TABLET PO SCH ×2 (08:47→21:33)
[2018-05-13] MEDS: OMEPRAZOLE 20 MG CAPSULE PO SCH (08:48)
[2018-05-13] MEDS: FUROSEMIDE 20 MG TABLET PO SCH (08:49)
[2018-05-13] MEDS: CELECOXIB 200 MG CAPSULE PO SCH ×2 (08:49→21:33)
[2018-05-13] MEDS: PREGABALIN 50 MG CAPSULE PO SCH ×2 (08:49→21:32)
[2018-05-13] MEDS: POTASSIUM CHLORIDE 10 MEQ ER TABLET PO SCH (08:49)
[2018-05-13] MEDS: METOPROLOL SUCCINATE 50 MG ER TABLET PO SCH (08:50)
[2018-05-13] MEDS: ALLOPURINOL 300 MG TABLET PO SCH (08:50)
[2018-05-13] MEDS: COLD CREAM, SKIN EMOLLIENT 340 GM JAR TP SCH ×2 (08:50→21:33)
[2018-05-13] MEDS: ACETAMINOPHEN 325 MG TABLET PO PRN ×3 (08:53→17:27)
[2018-05-13 16:38] VITALS: BP 121/70
[2018-05-13] MEDS: SENNA 187 MG TABLET PO SCH (21:00)
[2018-05-13] MEDS: ATORVASTATIN CALCIUM 20 MG TABLET PO SCH (21:32)
[2018-05-13] MEDS: LISINOPRIL 20 MG TABLET PO SCH (21:32)
[2018-05-13] MEDS: AmLODIPine BESYLATE 5 MG TABLET PO SCH (21:33)
[2018-05-13] MEDS: DOCUSATE SODIUM 100 MG CAPSULE PO PRN (21:33)
[2018-05-13 21:46] VITALS: BP 114/65
[2018-05-14 00:30] VITALS: BP 139/69
[2018-05-14] MEDS: LEVOTHYROXINE SODIUM 75 MCG TABLET PO SCH (06:23)
[2018-05-14 07:35] VITALS: BP 129/61
[2018-05-14] MEDS: OXYGEN THERAPY IH SCH (08:00)
[2018-05-14] MEDS: ALLOPURINOL 300 MG TABLET PO SCH (09:25)
[2018-05-14] MEDS: METOPROLOL SUCCINATE 50 MG ER TABLET PO SCH (09:26)
[2018-05-14] MEDS: CALCIUM CIT/VITAMIN D3 200 MG-250 UNITS TABLET PO SCH ×2 (09:26→19:50)
[2018-05-14] MEDS: PREGABALIN 50 MG CAPSULE PO SCH ×2 (09:26→19:49)
[2018-05-14] MEDS: CELECOXIB 200 MG CAPSULE PO SCH ×2 (09:27→19:49)
[2018-05-14] MEDS: OMEPRAZOLE 20 MG CAPSULE PO SCH (09:27)
[2018-05-14] MEDS: PredniSONE 5 MG TABLET PO SCH ×2 (09:27→19:50)
[2018-05-14] MEDS: COLD CREAM, SKIN EMOLLIENT 340 GM JAR TP SCH ×2 (09:28→19:58)
[2018-05-14] MEDS: ACETAMINOPHEN 325 MG TABLET PO PRN ×2 (12:00→16:38)
[2018-05-14] MEDS ORDERED: SENNA 187 MG TABLET PO PRN (15:00)
[2018-05-14] MEDS ORDERED: OMEP20 PO (15:02)
[2018-05-14] MEDS ORDERED: CELE200 PO (15:02)
[2018-05-14] MEDS ORDERED: PRED1 PO (15:02)
[2018-05-14] MEDS ORDERED: PREG50 PO (15:02)
[2018-05-14] MEDS ORDERED: PRED5 PO (15:02)
[2018-05-14 16:02] VITALS: BP 131/73
[2018-05-14 19:47] VITALS: BP 121/67
[2018-05-14] MEDS: ATORVASTATIN CALCIUM 20 MG TABLET PO SCH (19:49)
[2018-05-14] MEDS: AmLODIPine BESYLATE 5 MG TABLET PO SCH (19:49)
[2018-05-14] MEDS: LISINOPRIL 20 MG TABLET PO SCH (19:50)
[2018-05-15 02:34] VITALS: BP 156/63
[2018-05-15] MEDS: LEVOTHYROXINE SODIUM 75 MCG TABLET PO SCH (06:23)
[2018-05-15 07:35] VITALS: BP 140/73
[2018-05-15] MEDS: METOPROLOL SUCCINATE 50 MG ER TABLET PO SCH (08:44)
[2018-05-15] MEDS: ACETAMINOPHEN 325 MG TABLET PO PRN ×2 (08:44→12:43)
[2018-05-15] MEDS: PREGABALIN 50 MG CAPSULE PO SCH ×2 (08:44→20:41)
[2018-05-15] MEDS: PredniSONE 5 MG TABLET PO SCH ×2 (08:45→20:41)
[2018-05-15] MEDS: FUROSEMIDE 20 MG TABLET PO SCH (08:45)
[2018-05-15] MEDS: OMEPRAZOLE 20 MG CAPSULE PO SCH (08:45)
[2018-05-15] MEDS: ALLOPURINOL 300 MG TABLET PO SCH (08:45)
[2018-05-15] MEDS: POTASSIUM CHLORIDE 10 MEQ ER TABLET PO SCH (08:46)
[2018-05-15] MEDS: CALCIUM CIT/VITAMIN D3 200 MG-250 UNITS TABLET PO SCH ×2 (08:46→20:40)
[2018-05-15] MEDS: CELECOXIB 200 MG CAPSULE PO SCH ×2 (08:46→20:40)
[2018-05-15] MEDS: COLD CREAM, SKIN EMOLLIENT 340 GM JAR TP SCH ×2 (08:54→20:43)
[2018-05-15 15:01] VITALS: BP 130/56
[2018-05-15] MEDS: ATORVASTATIN CALCIUM 20 MG TABLET PO SCH (20:41)
[2018-05-15] MEDS: AmLODIPine BESYLATE 5 MG TABLET PO SCH (20:41)
[2018-05-15] MEDS: LISINOPRIL 20 MG TABLET PO SCH (20:41)
[2018-05-16 02:00] VITALS: BP 107/53
[2018-05-16] MEDS: LEVOTHYROXINE SODIUM 75 MCG TABLET PO SCH (05:47)
[2018-05-16 07:37] VITALS: BP 136/66
[2018-05-16] MEDS: COLD CREAM, SKIN EMOLLIENT 340 GM JAR TP SCH ×2 (09:00→20:37)
[2018-05-16] MEDS: PredniSONE 5 MG TABLET PO SCH ×2 (09:23→20:37)
[2018-05-16] MEDS: PREGABALIN 50 MG CAPSULE PO SCH ×2 (09:23→20:37)
[2018-05-16] MEDS: ALLOPURINOL 300 MG TABLET PO SCH (09:23)
[2018-05-16] MEDS: METOPROLOL SUCCINATE 50 MG ER TABLET PO SCH (09:23)
[2018-05-16] MEDS: ACETAMINOPHEN 325 MG TABLET PO PRN ×3 (09:23→18:53)
[2018-05-16] MEDS: CALCIUM CIT/VITAMIN D3 200 MG-250 UNITS TABLET PO SCH ×2 (09:23→20:37)
[2018-05-16] MEDS: OMEPRAZOLE 20 MG CAPSULE PO SCH (09:24)
[2018-05-16] MEDS: CELECOXIB 200 MG CAPSULE PO SCH ×2 (09:24→20:37)
[2018-05-16 15:29] VITALS: BP 118/62
[2018-05-16 20:31] VITALS: BP 124/71
[2018-05-16] MEDS: ATORVASTATIN CALCIUM 20 MG TABLET PO SCH (20:37)
[2018-05-16] MEDS: AmLODIPine BESYLATE 5 MG TABLET PO SCH (20:37)
[2018-05-16] MEDS: LISINOPRIL 20 MG TABLET PO SCH (20:37)
[2018-05-17 01:44] VITALS: BP 128/70
[2018-05-17] MEDS: LEVOTHYROXINE SODIUM 75 MCG TABLET PO SCH (05:42)
[2018-05-17 07:30] VITALS: BP 142/72
[2018-05-17] MEDS: ACETAMINOPHEN 325 MG TABLET PO PRN ×3 (07:44→18:17)
[2018-05-17 08:16] VITALS: BP 128/70
[2018-05-17] MEDS: PredniSONE 5 MG TABLET PO SCH ×2 (08:21→20:28)
[2018-05-17] MEDS: FUROSEMIDE 20 MG TABLET PO SCH (08:21)
[2018-05-17] MEDS: CALCIUM CIT/VITAMIN D3 200 MG-250 UNITS TABLET PO SCH ×2 (08:22→20:28)
[2018-05-17] MEDS: ALLOPURINOL 300 MG TABLET PO SCH (08:22)
[2018-05-17] MEDS: PREGABALIN 50 MG CAPSULE PO SCH ×2 (08:22→20:28)
[2018-05-17] MEDS: POTASSIUM CHLORIDE 10 MEQ ER TABLET PO SCH (08:22)
[2018-05-17] MEDS: METOPROLOL SUCCINATE 50 MG ER TABLET PO SCH (08:22)
[2018-05-17] MEDS: OMEPRAZOLE 20 MG CAPSULE PO SCH (08:22)
[2018-05-17] MEDS: CELECOXIB 200 MG CAPSULE PO SCH ×2 (08:22→20:27)
[2018-05-17] MEDS: COLD CREAM, SKIN EMOLLIENT 340 GM JAR TP SCH ×2 (08:23→20:29)
[2018-05-17 15:56] VITALS: BP 115/67
[2018-05-17] MEDS: ATORVASTATIN CALCIUM 20 MG TABLET PO SCH (20:28)
[2018-05-17] MEDS: AmLODIPine BESYLATE 5 MG TABLET PO SCH (20:28)
[2018-05-17] MEDS: LISINOPRIL 20 MG TABLET PO SCH (20:28)
[2018-05-17 20:30] VITALS: BP 124/71
[2018-05-18 01:30] VITALS: BP 126/45
[2018-05-18] MEDS: LEVOTHYROXINE SODIUM 75 MCG TABLET PO SCH (05:50)
[2018-05-18 07:20] VITALS: BP 137/75
[2018-05-18] MEDS: ACETAMINOPHEN 325 MG TABLET PO PRN ×2 (08:41→13:31)
[2018-05-18] MEDS: PREGABALIN 50 MG CAPSULE PO SCH ×2 (08:41→20:25)
[2018-05-18] MEDS: CALCIUM CIT/VITAMIN D3 200 MG-250 UNITS TABLET PO SCH ×2 (08:42→20:25)
[2018-05-18] MEDS: OMEPRAZOLE 20 MG CAPSULE PO SCH (08:42)
[2018-05-18] MEDS: METOPROLOL SUCCINATE 50 MG ER TABLET PO SCH (08:42)
[2018-05-18] MEDS: PredniSONE 5 MG TABLET PO SCH ×2 (08:42→20:25)
[2018-05-18] MEDS: CELECOXIB 200 MG CAPSULE PO SCH ×2 (08:42→20:25)
[2018-05-18] MEDS: MULTIVITAMINS WITH MINERALS, THERAPEUTIC TABLET PO SCH (08:42)
[2018-05-18] MEDS: COLD CREAM, SKIN EMOLLIENT 340 GM JAR TP SCH ×2 (08:43→20:33)
[2018-05-18] MEDS: ALLOPURINOL 300 MG TABLET PO SCH (08:43)
[2018-05-18 15:28] VITALS: BP 114/72
[2018-05-18] MEDS: ATORVASTATIN CALCIUM 20 MG TABLET PO SCH (20:25)
[2018-05-18] MEDS: LISINOPRIL 20 MG TABLET PO SCH (20:25)
[2018-05-18] MEDS: AmLODIPine BESYLATE 5 MG TABLET PO SCH (20:25)
[2018-05-19 00:30] VITALS: BP 128/64
[2018-05-19] MEDS ORDERED: PRED10 PO (04:00)
[2018-05-19] MEDS ORDERED: ADAL40PE5 SQ (04:02)
[2018-05-19] MEDS ORDERED: MULT-1239 PO (04:02)
[2018-05-19] MEDS ORDERED: CALC-844 PO (04:06)
[2018-05-19] MEDS: LEVOTHYROXINE SODIUM 75 MCG TABLET PO SCH (05:42)
[2018-05-19 06:36] LABS: BASOPHILS % (AUTO) 0.5 % (0.0-2.0); EOSINOPHILS % (AUTO) 0.3 % (1.0-6.0); HEMOGLOBIN 10.6 g/dL (12.0-16.0); LYMPHOCYTES # (AUTO) 2.7 K/uL (1.0-4.8); LYMPHOCYTES % (AUTO) 21.7 % (22.0-44.0); MEAN CORPUSCULAR HEMOGLOBIN 28.7 pg (26.0-34.0); MEAN CORPUSCULAR VOLUME 90 fL (80-100); MONOCYTES # (AUTO) 1.3 K/uL (0.1-1.0); MONOCYTES % (AUTO) 10.2 % (2.0-9.0); NEUTROPHILS # (AUTO) 8.5 K/uL (1.8-7.7); NEUTROPHILS % (AUTO) 67.3 % (40.0-70.0); PLATELET COUNT (AUTO) 263 K/uL (150-450); RED BLOOD CELL COUNT(AUTO) 3.68 MIL/uL (4.00-5.20); RED CELL DISTRIBUTION WIDTH 17.7 % (11.5-14.5)
[2018-05-19 07:06] LABS: CALCIUM, TOTAL 9.3 mg/dL (8.8-10.5); CREATININE 0.98 mg/dL (0.60-1.30); POTASSIUM 4.5 mmol/L (3.5-5.1)
[2018-05-19 07:20] VITALS: BP 134/84
[2018-05-19] MEDS: ACETAMINOPHEN 325 MG TABLET PO PRN ×2 (08:40→15:06)
[2018-05-19] MEDS: HUMIRA 40 MG/0.4 ML SQ SCH (09:00)
[2018-05-19] MEDS: OMEPRAZOLE 20 MG CAPSULE PO SCH (09:10)
[2018-05-19] MEDS: CELECOXIB 200 MG CAPSULE PO SCH ×2 (09:11→20:36)
[2018-05-19] MEDS: CALCIUM CIT/VITAMIN D3 200 MG-250 UNITS TABLET PO SCH ×2 (09:11→20:36)
[2018-05-19] MEDS: ALLOPURINOL 300 MG TABLET PO SCH (09:12)
[2018-05-19] MEDS: PREGABALIN 50 MG CAPSULE PO SCH ×2 (09:12→20:36)
[2018-05-19] MEDS: FUROSEMIDE 20 MG TABLET PO SCH (09:13)
[2018-05-19] MEDS: PredniSONE 10 MG TABLET PO SCH (09:13)
[2018-05-19] MEDS: MULTIVITAMINS WITH MINERALS, THERAPEUTIC TABLET PO SCH (09:13)
[2018-05-19] MEDS: METOPROLOL SUCCINATE 50 MG ER TABLET PO SCH (09:13)
[2018-05-19] MEDS: POTASSIUM CHLORIDE 10 MEQ ER TABLET PO SCH (09:13)
[2018-05-19] MEDS: COLD CREAM, SKIN EMOLLIENT 340 GM JAR TP SCH ×2 (09:14→20:40)
[2018-05-19 15:05] VITALS: BP 111/63
[2018-05-19] MEDS: AmLODIPine BESYLATE 5 MG TABLET PO SCH (20:36)
[2018-05-19] MEDS: PredniSONE 5 MG TABLET PO SCH (20:36)
[2018-05-19] MEDS: ATORVASTATIN CALCIUM 20 MG TABLET PO SCH (20:36)
[2018-05-19] MEDS: LISINOPRIL 20 MG TABLET PO SCH (20:36)
[2018-05-20] MEDS: LEVOTHYROXINE SODIUM 75 MCG TABLET PO SCH (05:53)
[2018-05-20 06:00] VITALS: BP 131/76
[2018-05-20 08:54] VITALS: BP 125/74
[2018-05-20] MEDS: ACETAMINOPHEN 325 MG TABLET PO PRN ×2 (10:07→15:35)
[2018-05-20] MEDS: METOPROLOL SUCCINATE 50 MG ER TABLET PO SCH (10:08)
[2018-05-20] MEDS: CALCIUM CIT/VITAMIN D3 200 MG-250 UNITS TABLET PO SCH ×2 (10:09→20:44)
[2018-05-20] MEDS: PREGABALIN 50 MG CAPSULE PO SCH ×2 (10:09→20:44)
[2018-05-20] MEDS: ALLOPURINOL 300 MG TABLET PO SCH (10:09)
[2018-05-20] MEDS: CELECOXIB 200 MG CAPSULE PO SCH ×2 (10:09→20:44)
[2018-05-20] MEDS: PredniSONE 10 MG TABLET PO SCH (10:10)
[2018-05-20] MEDS: MULTIVITAMINS WITH MINERALS, THERAPEUTIC TABLET PO SCH (10:10)
[2018-05-20] MEDS: OMEPRAZOLE 20 MG CAPSULE PO SCH (10:10)
[2018-05-20] MEDS: COLD CREAM, SKIN EMOLLIENT 340 GM JAR TP SCH ×2 (10:11→20:44)
[2018-05-20] MEDS ORDERED: HUMIRA 40 MG/0.4 ML SQ SCH (13:25)
[2018-05-20 15:31] VITALS: BP 122/63
[2018-05-20 20:41] VITALS: BP 132/75
[2018-05-20] MEDS: PredniSONE 5 MG TABLET PO SCH (20:44)
[2018-05-20] MEDS: ATORVASTATIN CALCIUM 20 MG TABLET PO SCH (20:44)
[2018-05-20] MEDS: LISINOPRIL 20 MG TABLET PO SCH (20:44)
[2018-05-20] MEDS: AmLODIPine BESYLATE 5 MG TABLET PO SCH (20:44)
[2018-05-21 00:40] VITALS: BP 135/66
[2018-05-21] MEDS: LEVOTHYROXINE SODIUM 75 MCG TABLET PO SCH (05:55)
[2018-05-21] MEDS: METOPROLOL SUCCINATE 50 MG ER TABLET PO SCH (08:20)
[2018-05-21] MEDS: MULTIVITAMINS WITH MINERALS, THERAPEUTIC TABLET PO SCH (08:20)
[2018-05-21] MEDS: PREGABALIN 50 MG CAPSULE PO SCH (08:20)
[2018-05-21] MEDS: CALCIUM CIT/VITAMIN D3 200 MG-250 UNITS TABLET PO SCH (08:20)
[2018-05-21] MEDS: OMEPRAZOLE 20 MG CAPSULE PO SCH (08:20)
[2018-05-21] MEDS: PredniSONE 10 MG TABLET PO SCH (08:20)
[2018-05-21] MEDS: CELECOXIB 200 MG CAPSULE PO SCH (08:20)
[2018-05-21] MEDS: ALLOPURINOL 300 MG TABLET PO SCH (08:20)
[2018-05-21] MEDS: COLD CREAM, SKIN EMOLLIENT 340 GM JAR TP SCH (08:21)
[2018-05-21 08:26] VITALS: BP 139/73
[2018-05-21] MEDS: ACETAMINOPHEN 325 MG TABLET PO PRN (08:26)
[2018-05-21] MEDS: FUROSEMIDE 20 MG TABLET PO SCH (08:29)
[2018-05-21] MEDS: POTASSIUM CHLORIDE 10 MEQ ER TABLET PO SCH (08:29)
== END 2018-05-21 13:05 | disposition home health service (06) | DRG 91 ==
LOC: 2WR 12:44
PROVIDERS: ADMIT Physical Medicine & Rehabilitation; ATTEND Physical Medicine & Rehabilitation
DX: G72.0 Drug-induced myopathy (principal); G82.50 Quadriplegia, unspecified; E46 Unspecified protein-calorie malnutrition; D63.8 Anemia in other chronic diseases classified elsewhere; E78.5 Hyperlipidemia, unspecified; I10 Essential (primary) hypertension; J84.10 Pulmonary fibrosis, unspecified; K21.9 Gastro-esophageal reflux disease without esophagitis; M06.9 Rheumatoid arthritis, unspecified; M81.0 Age-related osteoporosis without current pathological fracture; T38.0X5A Adverse effect of glucocorticoids and synthetic analogues, initial encounter; Z96.653 Presence of artificial knee joint, bilateral; E11.65 Type 2 diabetes mellitus with hyperglycemia; G47.00 Insomnia, unspecified; H35.30 Unspecified macular degeneration; Z96.641 Presence of right artificial hip joint; Z79.899 Other long term (current) drug therapy; Z82.49 Family history of ischemic heart disease and other diseases of the circulatory system; Z90.710 Acquired absence of both cervix and uterus; Z99.3 Dependence on wheelchair; Z68.20 Body mass index [BMI] 20.0-20.9, adult; Y92.89 Other specified places as the place of occurrence of the external cause; Z79.4 Long term (current) use of insulin; Z79.890 Hormone replacement therapy
CPT/HCPCS: 36600; 71250; 82805; 83036; 87081; 93005; 93970; 97110; 97112; 97116; 97150; 97163; 97167; 97530; 97535; 99366